=== PATIENT | female | born 1955 | race American Indian/Alaskan Native ===

== ENCOUNTER 2017-08-08 13:00 | Outpatient (CLI) | payer MEDICARE ==
--- NOTE | 2017-08-08 15:34 | XRay Report ---
RIGHT FINGER RADIOGRAPHS INDICATION: Pain in finger. COMPARISON: None similar. FINDINGS: AP view of the right hand with oblique and lateral projections of likely the third digit demonstrate intact bony articulation. No suspicious erosions or significant soft tissue abnormality. CONCLUSION: No acute right hand third digit radiographic abnormality, as described. Please correlate. Thank you for the opportunity to participate in this patient's care.
== END 2017-08-08 13:01 | disposition home or self-care (01) ==
LOC: XRAY 13:00
PROVIDERS: ATTEND Orthopaedic Surgery
DX: M79.644 Pain in right finger(s) (principal)